=== PATIENT | female | born 1975 | race Caucasian/White ===

== ENCOUNTER 2016-07-10 07:25 | Emergency (ER) | payer SELFPAY ==
--- NOTE | 2016-07-10 08:21 | ED ORDER SUMMARY ---
..... Patient: REGINE DIAZ OrderSheet [facility] VisitID: [id number] [address] [place] [address] 41y, F Registration Date/Time: 07/10/2016 ORDER SHEET Weight: 78.4 kg (stated) Allergies: No Known Drug Allergy GENERAL ORDERS: CBC w Diff Urgent (07:53 07/10/2016 Shanon Andersen) (7:54 Verna R.N.) (Ack 7:55 Corie) CMP Urgent (07:07/10/2016 Shanon Andersen) (7:54 Verna R.N.) (Ack 7:55 Corie) UA-Culture if indicated Urgent (07:53 07/10/2016 Shanon Andersen) (Ack 7:55 Corie) Amylase Urgent (07:07/10/2016 Shanon Andersen) (7:54 Verna R.N.) (Ack 7:55 Corie) Lipase Urgent (07:07/10/2016 Shanon Andersen) (7:54 Verna R.N.) (Ack 7:55 Corie) Urine Urgent (07:53 07/10/2016 Shanon Andersen) (7:54 Verna R.N.) (Ack 7:55 Corie) Urine Drug Screen Urgent (07:53 07/10/2016 Shanon Andersen) (Ack 7:55 Corie) MEDICATION ORDERS: IV FLUIDS: IV NS : initial bolus none -, then 1000 mL/hr for X1 (NOW) (07:52 07/10/2016 Shanon Andersen) (8:04 Morenita R.N.) Toradol IV 30 mg (NOW) (07:53 07/10/2016 Shanon Andersen) (8:04 Morenita R.N.) Zofran IV 4 mg (NOW) (07:53 07/10/2016 Shanon Andersen) (8:05 MERTest R.N.) ORDER SHEET NOTES: [Electronically signed by Santiago Correia Dr. (08:27 07/10/2016)] [Electronically signed by Amanda Royal R.N. (07/10/2016)] [Electronically locked/signed by Amanda Royal R.N. (07/10/2016)]
--- NOTE | 2016-07-10 08:21 | ED CLINICAL REPORT ---
Clinical Report - Physicians/Mid Levels [facility] [address] [place] [address] 07/10/2016 7:25 Patient: REGINE DIAZ Time Seen: 07:36; initial patient contact. Arrived- By private vehicle. Historian- patient. HISTORY OF PRESENT ILLNESS Chief Complaint: ABDOMINAL PAIN. No radiation. It is described as located in the right lower quadrant. At its maximum, severity described as moderate. When seen in the E.D., severity described as moderate. Modifying factors. Not worsened by anything. Not relieved by anything. This started today and is still present. It was abrupt in onset and has been constant. The patient has had nausea, loss of appetite, vomiting and diarrhea. Similar symptoms previously: None. Recent medical care: Not recently seen/assessed. REVIEW OF SYSTEMS No constipation, pain with urination, fever or chills. All systems otherwise negative, except as recorded above. PAST HISTORY Negative. Surgeries: Tubal ligation. Medications: None. Allergies: No Known Drug Allergy. SOCIAL HISTORY Current every day smoker. ADDITIONAL NOTES The nursing notes have been reviewed. PHYSICAL EXAM Vital Signs: 07/10/2016 07:37 BP: 113/90. HR: 78. RR: 18. O2 saturation: 100%. Temp: 98.1 F. Pain level now: 10/10. Have been reviewed. Hypertensive. Heart rate normal. Respiratory rate normal. Temperature normal. Oxygen saturation normal. Eyes: Eyes normal inspection. No scleral icterus. ENT: Dry mucous membranes present. CVS: Normal heart rate and rhythm. Heart sounds normal. Respiratory: No respiratory distress. Breath sounds normal. Abdomen: Soft. Moderate tenderness in the right side of the abdomen with guarding present. No rebound tenderness or Pritchard's, obturator or psoas sign present. Bowel sounds normal. No organomegaly. No mass. Back: Normal inspection. No CVA tenderness. Skin: Skin warm and dry. Normal skin color. Extremities: No calf tenderness. No lower extremity edema. Neuro: Oriented X 3. CLINICAL IMPRESSION Acute right lower quadrant abdominal pain of unknown cause. INSTRUCTIONS AMA warnings: ( Pt left without being able to speak to her about why she insisted on leaving. The same thing happened 1 year ago.). (Electronically signed by Santiago Correia Dr. 07/10/2016 8:27)
--- NOTE | 2016-07-10 08:21 | ED CLINICAL REPORT ---
Clinical Report - Physicians/Mid Levels [facility] [address] [place] [address] 07/10/2016 7:25 Patient: REGINE DIAZ Time Seen: 07:36; initial patient contact. Arrived- By private vehicle. Historian- patient. HISTORY OF PRESENT ILLNESS Chief Complaint: ABDOMINAL PAIN. No radiation. It is described as located in the right lower quadrant. At its maximum, severity described as moderate. When seen in the E.D., severity described as moderate. Modifying factors. Not worsened by anything. Not relieved by anything. This started today and is still present. It was abrupt in onset and has been constant. The patient has had nausea, loss of appetite, vomiting and diarrhea. Similar symptoms previously: None. Recent medical care: Not recently seen/assessed. REVIEW OF SYSTEMS No constipation, pain with urination, fever or chills. All systems otherwise negative, except as recorded above. PAST HISTORY Negative. Surgeries: Tubal ligation. Medications: None. Allergies: No Known Drug Allergy. SOCIAL HISTORY Current every day smoker. ADDITIONAL NOTES The nursing notes have been reviewed. PHYSICAL EXAM Vital Signs: 07/10/2016 07:37 BP: 113/90. HR: 78. RR: 18. O2 saturation: 100%. Temp: 98.1 F. Pain level now: 10/10. Have been reviewed. Hypertensive. Heart rate normal. Respiratory rate normal. Temperature normal. Oxygen saturation normal. Eyes: Eyes normal inspection. No scleral icterus. ENT: Dry mucous membranes present. CVS: Normal heart rate and rhythm. Heart sounds normal. Respiratory: No respiratory distress. Breath sounds normal. Abdomen: Soft. Moderate tenderness in the right side of the abdomen with guarding present. No rebound tenderness or Pritchard's, obturator or psoas sign present. Bowel sounds normal. No organomegaly. No mass. Back: Normal inspection. No CVA tenderness. Skin: Skin warm and dry. Normal skin color. Extremities: No calf tenderness. No lower extremity edema. Neuro: Oriented X 3. CLINICAL IMPRESSION Acute right lower quadrant abdominal pain of unknown cause. INSTRUCTIONS AMA warnings: ( Pt left without being able to speak to her about why she insisted on leaving. The same thing happened 1 year ago.). (Electronically signed by Santiago Correia Dr. 07/10/2016 8:27)
--- NOTE | 2016-07-10 08:21 | ED NURSING NOTES ---
Clinical Report - Nurses [facility] [address] [place] [address] 07/10/2016 7:25 Patient: REGINE DIAZ TRIAGE Triage time 07:38. Acuity: LEVEL 3. Chief Complaint: ABDOMINAL PAIN, NAUSEA, VOMITING and DIARRHEA. SEPSIS SCREEN: Sepsis Screen. Negative (no infection suspected/documented). --07:42 Amanda Royal R.N. 07:37 07/10/16. BP: 113/90. HR: 78. RR: 18. O2 saturation: 100%. Temp: 98.1 F. Pain level now: 11/14. --07:42 Amanda Royal R.N. Weight: 78.4 kg stated. Height/Length: 66 inches Per Patient. BMI: 27.9. --07:43 Amanda Royal R.N. Medications None. --07:39 Amanda Royal R.N. Medication/allergy information source: the patient. --07:42 Amanda Royal R.N. Allergies No Known Drug Allergy. --07:39 Amanda Royal R.N. History Arrived by private vehicle. Historian: patient. Primary physician (NO PCP). Onset. (about 4 days ago). ( PT STATES IT BEGAN ABOUT 4 DAYS AGO AND IS GETTING WORSE IN THE RUQ. SHE IS MOANING LOUDLY AND GUARDING HER ABDOMEN.). Last oral intake by patient was (about 3 days ago). Treatment [employer]: None. PAST MEDICAL HX: Immunizations: up-to-date. Denies current . SOCIAL HX: Smoker- current status unknown. --07:42 Amanda Royal R.N. Interventions ID band on patient. To room. --07:42 Amanda Royal R.N. PHYSICAL ASSESSMENT Ambulatory to room. Patient gowned. GENERAL / NEURO / PSYCH: Alert. Oriented X 4. Appears in pain, anxious and in distress. RESPIRATORY: Breath sounds within normal limits. CVS: Capillary refill less than 2 seconds. GI / : Abdominal tenderness in the right upper quadrant. Guarding present. SKIN: Skin is warm and dry. --07:43 Amanda Royal R.N. NURSING PROGRESS NOTES Patient gowned. Reassurance given. Two patient identifiers checked. Call light placed in reach. Side rails up. Bed placed in lowest position. Patient ready for evaluation- ED physician notified. --07:44 Amanda Royal R.N. 07:48 07/10/2016 Site #1 started via IV in the left forearm with an 20g angiocath, with aseptic technique and good blood return; one attempt. Blood drawn: rainbow set. Labeled in the presence of the patient and sent to the lab. Saline lock flushed with 10 mL saline (started by michelle CALERO). --08:04 Amanda Royal R.N. 08:03 07/10/2016 Started bag #1 1000 mL IV Fluids IV NS (Saline); at 1000 mL/hr over 1 hour(s) via site #1 --08:04 Amanda Royal R.N. 08:04 07/10/2016 Toradol IVP 30 mg given. via site #1. Allergies verified and confirmed 5 rights. IV patency established. IV site checked: no pain, redness, or swelling. IV flushed thoroughly pre- and post-medication administration. --08:04 Amanda Royal R.N. 08:05 07/10/2016 Zofran (Ondansetron HCl) IVP 4 mg given. via site #1. Allergies verified and confirmed 5 rights. IV patency established. IV site checked: no pain, redness, or swelling. IV flushed thoroughly pre- and post-medication administration. --08:05 Amanda Royal R.N. 08:06 07/10/16. Temp: 98.3 F (oral). Additional comments: PT STATED SHE FELT LIKE SHE WAS GETTING A FEVER. --08:07 Amanda Royal R.N. Reassessment after medication administered. Overall patient status- she states feels worse. ( PT UPSET, SAYING SHE ISN'T GETTING TREATED FOR HER PAIN. DISCUSSED THE MEDS SHE RECEIVED AND SHE SAID THEY AREN'T WORKING. SHE APPEARS VERY UPSET, CRYING, FRUSTRATED. ASKED FOR A URINE SAMPLE AND SHE REFUSED. SHE IS SAYING SHE WANTS TO LEAVE.). GI / : The patient reports abdominal pain. Abdominal tenderness. --08:09 Amanda Royal R.N. ( This RN went in to room due to hearing pt yelling from nursing station. Pt yelling at RN at bedside, "there's sweat dripping down my back, Why am I here if i'm not being helped? want to go, I want to go now, discharge me right now." AMA form printed for patient, notified). --08:12 Tereza Marquez R.N. 08:09 AM. ( PT VERY UPSET, YELLING ABOUT NOT BEING TREATED, SAID SHE IS DYING AND NOBODY IS HELPING HER. SHE WANTS THE IV TAKEN OUT AND SHE IS LEAVING. I LEFT THE ROOM TO GET THE AMA FORM AND SHE YELLED FOR ME TO COME BACK AND TAKE OUT HER IV. I TOLD HER I WOULD BE RIGHT BACK. I RETURNED TO THE ROOM WITH THE FORM, SHE TOLD ME TO TAKE OUT HER IV WHICH I DID. SHE REFUSED TO SIGN THE AMA FORM WHEN I PRESENTED IT TO HER. PT LEFT THE ED VERY QUICKLY AND WAS NO LONGER MOANING HOWEVER SHE DID APPEAR VERY ANGRY.). --08:19 Amanda oRyal R.N. DISPOSITION / DISCHARGE 08:10 07/10/2016 Site #1 removed upon discharge. Bandaid applied (PT LEFT AMA). --08:20 Amanda Royal R.N. The patient left prior to discharge education being provided. The patient left the Emergency Department against medical advice; patient was unaccompanied. The patient appears to be uncooperative and belligerent. She notified the ED staff prior to leaving the department and stated is leaving the ED due to personal reasons (SHE FELT HER PAIN WAS NOT BEING TREATED). Notified the ED physician of patient departure. Prior to leaving the ED, she was advised to stay for completion of treatment. She was informed of the risks of leaving and verbalized understanding of these risks. Patient refused to sign form prior to leaving. She left the Emergency Department ambulatory and via private vehicle. --08:22 Amanda Royal R.N. Departure time: 0810 AM. --08:23 Amanda Royal R.N. 08:25 07/10/16. BP: unable to obtain due to patient not present. HR: unable to obtain due to patient not present. RR: unable to obtain due to patient not present. O2 saturation: unable to obtain due to patient not present. Temp: unable to obtain due to patient not present. Pain level now unable to obtain due to patient not present. --08:26 Amanda Royal R.N. 08:10 AM. --08:26 Amanda Royal R.N. 08:10 07/10/2016 IV Fluids IV NS Discontinued: bag #1 discontinued upon discharge. Total amount infused: 100 mL. --19:27 Amanda Royal R.N. Locked/Released at 07/10/2016 19:27 by Amanda Royal R.N.
--- NOTE | 2016-07-10 08:21 | ED ORDER SUMMARY ---
..... Patient: REGINE DIAZ OrderSheet [facility] VisitID: [id number] [address] [place] [address] 41y, F Registration Date/Time: 07/10/2016 ORDER SHEET Weight: 78.4 kg (stated) Allergies: No Known Drug Allergy GENERAL ORDERS: CBC w Diff Urgent (07:53 07/10/2016 Shanon Andersen) (7:54 Verna R.N.) (Ack 7:55 Corie) CMP Urgent (07:07/10/2016 Shanon Andersen) (7:54 Verna R.N.) (Ack 7:55 Corie) UA-Culture if indicated Urgent (07:53 07/10/2016 Shanon Andersen) (Ack 7:55 Corie) Amylase Urgent (07:07/10/2016 Shanon Andersen) (7:54 Verna R.N.) (Ack 7:55 Corie) Lipase Urgent (07:07/10/2016 Shanon Andersen) (7:54 Verna R.N.) (Ack 7:55 Corie) Urine Urgent (07:53 07/10/2016 Shanon Andersen) (7:54 Verna R.N.) (Ack 7:55 Corie) Urine Drug Screen Urgent (07:53 07/10/2016 Shanon Andersen) (Ack 7:55 Corie) MEDICATION ORDERS: IV FLUIDS: IV NS : initial bolus none -, then 1000 mL/hr for X1 (NOW) (07:52 07/10/2016 Shanon nAdersen) (8:04 Morenita R.N.) Toradol IV 30 mg (NOW) (07:53 07/10/2016 Shanon Andersen) (8:04 Morenita R.N.) Zofran IV 4 mg (NOW) (07:53 07/10/2016 Shanon Andersen) (8:05 MERTest R.N.) ORDER SHEET NOTES: [Electronically signed by Santiago Correia Dr. (08:27 07/10/2016)] [Electronically signed by Amanda Royal R.N. (07/10/2016)] [Electronically locked/signed by Amanda Royal R.N. (07/10/2016)]
--- NOTE | 2016-07-10 19:27 | ED DISCHARGE INSTRUCTIONS ---
Patient: REGINE DIAZ General Instructions [facility] VisitID: [id number] [address] [place] [place] [address] 41y, F Registration Date/Time: 07/10/2016 Acute right lower quadrant abdominal pain of unknown cause. INSTRUCTIONS AMA warnings: ( Pt left without being able to speak to her about why she insisted on leaving. The same thing happened 1 year ago.). (Electronically signed by Santiago Correia Dr. 07/10/2016 8:27)
--- NOTE | 2016-07-10 19:27 | ED MED RECONCILIATION SUMMARY ---
Patient: REGINE DIAZ Medication Reconciliation Report [facility] VisitID: [id number] [address] [place] [address] 41y, F Registration Date/Time: 07/10/2016 Weight: 78.4 kg Height/Length: 66 in. BMI: 27.9 ALLERGIES: No Known Drug Allergy The patient's Home Medications are listed below: NONE. The source(s) of the original Home Medication information: patient The following Medications were given to the patient in the Emergency Department: IV NS IV Fluids bolus 0, then 1000 mL/hr, administered: 07/10/2016 8:03:00 AM Toradol [IVP] IVP 30 mg, administered: 07/10/2016 8:04:00 AM Zofran [IVP] IVP 4 mg, administered: 07/10/2016 8:05:00 AM The following Medications were prescribed to the patient: None.
--- NOTE | 2016-07-10 19:27 | ED MAR SUMMARY ---
..... Medication Administration Record [facility] [address] [place] [address] Patient: REGINE IDAZ Visit ID: [id number] 41y, F Weight: 78.4 kg Height/Length: 66 in BMI: 27.9 ALLERGIES: No Known Drug Allergy Start 08:03 07/10/2016 Amanda Royal R.N., Stop 08:10 07/10/2016 Amanda Royal R.N. Medication Administered: IV NS (SALINE), Dose: IV Fluids over 1 hour(s), Rate: 1000 mL/hr, Dispensed: 1000 mL bag, Site: #1 left forearm. Medication Ordered: IV NS : initial bolus none -, then 1000 mL/hr for X1 (NOW). Given 08:04 07/10/2016 Amanda Royal R.N. Medication Administered: TORADOL [IVP], Dose: 30 mg IVP, Site: #1 left forearm. Medication Ordered: Toradol IV 30 mg (NOW). Given 08:07/10/2016 Amanda Royal R.N. Medication Administered: ZOFRAN [IVP] (ONDANSETRON HCL), Dose: 4 mg IVP, Site: #1 left forearm. Medication Ordered: Zofran IV 4 mg (NOW).
--- NOTE | 2016-07-10 19:27 | ED MED RECONCILIATION SUMMARY ---
Patient: REGINE DIAZ Medication Reconciliation Report [facility] VisitID: [id number] [address] [place] [address] 41y, F Registration Date/Time: 07/10/2016 Weight: 78.4 kg Height/Length: 66 in. BMI: 27.9 ALLERGIES: No Known Drug Allergy The patient's Home Medications are listed below: NONE. The source(s) of the original Home Medication information: patient The following Medications were given to the patient in the Emergency Department: IV NS IV Fluids bolus 0, then 1000 mL/hr, administered: 07/10/2016 8:03:00 AM Toradol [IVP] IVP 30 mg, administered: 07/10/2016 8:04:00 AM Zofran [IVP] IVP 4 mg, administered: 07/10/2016 8:05:00 AM The following Medications were prescribed to the patient: None.
--- NOTE | 2016-07-10 19:27 | ED MAR SUMMARY ---
..... Medication Administration Record [facility] [address] [place] [address] Patient: REGINE DIAZ Visit ID: [id number] 41y, F Weight: 78.4 kg Height/Length: 66 in BMI: 27.9 ALLERGIES: No Known Drug Allergy Start 08:03 07/10/2016 Amanda Royal R.N., Stop 08:10 07/10/2016 Amanda Royal R.N. Medication Administered: IV NS (SALINE), Dose: IV Fluids over 1 hour(s), Rate: 1000 mL/hr, Dispensed: 1000 mL bag, Site: #1 left forearm. Medication Ordered: IV NS : initial bolus none -, then 1000 mL/hr for X1 (NOW). Given 08:04 07/10/2016 Amanda Royal R.N. Medication Administered: TORADOL [IVP], Dose: 30 mg IVP, Site: #1 left forearm. Medication Ordered: Toradol IV 30 mg (NOW). Given 08:07/10/2016 Amanda Royal R.N. Medication Administered: ZOFRAN [IVP] (ONDANSETRON HCL), Dose: 4 mg IVP, Site: #1 left forearm. Medication Ordered: Zofran IV 4 mg (NOW).
--- NOTE | 2016-07-10 19:27 | ED DISCHARGE INSTRUCTIONS ---
Patient: REGINE DIAZ General Instructions [facility] VisitID: [id number] [address] [place] [address] 41y, F Registration Date/Time: 07/10/2016 Acute right lower quadrant abdominal pain of unknown cause. INSTRUCTIONS AMA warnings: ( Pt left without being able to speak to her about why she insisted on leaving. The same thing happened 1 year ago.). (Electronically signed by Santiago Correia Dr. 07/10/2016 8:27)
== END 2016-07-10 08:10 | disposition home or self-care (01) ==
LOC: ED SRH 07:25
DX: R10.31 Right lower quadrant pain (principal); F17.200 Nicotine dependence, unspecified, uncomplicated
CPT/HCPCS: 90100; 92235; 92530; 95059